=== PATIENT | male | born 1995 | race American Indian/Alaskan Native ===

== ENCOUNTER 2018-11-29 20:26 | Emergency (ER) | payer SELFPAY ==
[~2018-11-29] VITALS: Ht 167.6 cm; Wt 70.8 kg
[2018-11-29 20:43] VITALS: Ht 167.6 cm; Wt 70.8 kg
[2018-11-29 22:33] VITALS: BP 127/76
== END 2018-11-29 22:33 | disposition home or self-care (01) ==
LOC: ED 20:26
DX: S06.0X0A Concussion without loss of consciousness, initial encounter (principal); V98.8XXA Other specified transport accidents, initial encounter; Y93.55 Activity, bike riding; Y92.413 State road as the place of occurrence of the external cause; Y99.8 Other external cause status
CPT/HCPCS: 90715